=== PATIENT | male | born 1990 | race Caucasian/White ===

== ENCOUNTER 2017-07-02 13:02 | Emergency (ER) | payer OTHER ==
[~2017-07-02] VITALS: Ht 170.2 cm; Wt 81.8 kg
[~2017-07-02 13:02] MED LIST: AMOX500T PO; CORTIS10A AU; METH18 PO
[2017-07-02 13:04] VITALS: BP 142/81; PULSE 85; RESP 16; TEMP 97.8; O2SAT 98
--- NOTE | 2017-07-02 13:45 | PD ---
HPI Chief Complaint: Injury Time Seen by Provider: 13:35 Travel History International Travel<30 days: No Contact w/Intl Traveler<30days: No Traveled to known affect area: No History of Present Illness HPI 26-year-old male presents to the emergency room for evaluation of left thumb pain and swelling after falling on outstretched hand 2 days ago. Patient denies any other injuries. Denies hitting his head or loss of consciousness. He took Advil one time for pain. Pain is localized to the hypothenar eminence without radiation. States pain is not severe unless he touches his pinky to his thumb or reaches for his phone. States it was really swollen yesterday but it has decreased today. Denies paresthesias. PFSH Past Medical History Medical History: Denies Significant Hx ADD: Yes Depression: Yes Immunizations Current: Yes Tetanus Vaccination: > 5 Years Influenza Vaccination: No ?: Not Past Surgical History Surgical History: No Previous Surgery Social History Alcohol Use: Yes (occ) Tobacco Use: Yes (occ) Substance Use: No Allergies-Medications (Allergen,Severity, Reaction): Coded Allergies: No Known Allergies (Verified , 07/02/17) Reported Meds & Prescriptions Reported Meds & Active Scripts Active No Active Prescriptions or Reported Medications Review of Systems Except as stated in HPI: all other systems reviewed are Neg Physical Exam Narrative GENERAL: Well-nourished, well-developed male in no acute distress. Afebrile. Ambulatory. SKIN: Focused skin assessment warm/dry. Mild ecchymosis over the left hypothenar eminence. HEAD: Normocephalic. EYES: No scleral icterus. No injection or drainage. NECK: Supple, trachea midline. No JVD or lymphadenopathy. CARDIOVASCULAR: Regular rate and rhythm without murmurs, gallops, or rubs. RESPIRATORY: Breath sounds equal bilaterally. No accessory muscle use. MUSCULOSKELETAL: No cyanosis. No obvious edema. 2+ radial pulse. Less than 2 second capillary refill distally. Full range motion of the hand. No bony tenderness to palpation. Radial, ulnar, and median nerves intact. Data Data Last Documented VS Vital Signs Date Time Temp Pulse Resp B/P (MAP) Pulse Ox O2 Delivery O2 Flow Rate FiO2 07/02/17 13:10 Room Air 07/02/17 13:04 97.8 85 16 142/81 (101) 98 Orders Orders Hand, Complete ([id number]) (07/02/17 ) [facility] Medical Decision Making Medical Screen Exam Complete: Yes Emergency Medical Condition: Yes Medical Record Reviewed: Yes Differential Diagnosis Contusion, fracture, sprain, strain Narrative Course 26-year-old male presents to the emergency room for evaluation of left hand pain , swelling, and bruising after falling on an outstretched hand 2 days ago. Physical exam is reassuring. There is mild ecchymosis and no significant edema of the left hypothenar eminence. Patient has full range motion of left hand. No bony tenderness to palpation. Left hand is neurovascularly intact with less than 2 second capillary refill distally. X-rays negative. This is soft tissue injury/contusion. Patient reassured and told to follow up with a primary care physician or return for worsening symptoms. He understands and agrees to plan. Diagnosis Primary Impression: Contusion of left hand Qualified Codes: S60.222A - Contusion of left hand, initial encounter Referrals: Primary Care Physician Additional Instructions: Take ibuprofen with food as directed, as needed for pain. Apply ice to the affected area for 20 minutes at a time, as needed for pain and swelling. Follow-up with a primary care physician. Return to the emergency room for worsening symptoms. Scripts No Active Prescriptions or Reported Meds Disposition: 01 DISCHARGE HOME Condition: Stable Rebeca Lester Jul 02, 2017 13:45
--- NOTE | 2017-07-02 14:53 | RADRPT ---
EXAM DATE/TIME: 07/02/2017 14:31 [place] COMPARISON: No previous studies available for comparison. INDICATIONS : Left hand pain after fall MEDICAL HISTORY : None. SURGICAL HISTORY : None. ENCOUNTER: Initial ACUITY: 2 days PAIN SCORE: 6/10 LOCATION: Left hand FINDINGS: Three view examination of the left hand demonstrates no soft tissue swelling, dislocation, or fractur e. The carpal bones appear intact. The interphalangeal and metacarpophalangeal joints are intact. Bony mineralization is normal. CONCLUSION: Unremarkable examination of the left hand. Shante Azevedo MD on July 02, 2017 at 14:51 Board Certified Radiologist. This report was verified electronically.
[2017-07-02 15:10] VITALS: BP 116/78
== END 2017-07-02 15:11 | disposition home or self-care (01) ==
LOC: PHEFT 13:02
DX: S60.222A Contusion of left hand, initial encounter (principal); W19.XXXA Unspecified fall, initial encounter
CPT/HCPCS: 73130; 99283